=== PATIENT | female | born 1985 | race African-American/Black ===

== ENCOUNTER 2017-11-10 15:04 | Emergency (ER) | payer MEDICAID ==
[~2017-11-10] VITALS: Ht 165.1 cm; Wt 77.1 kg
[2017-11-10 15:12] VITALS: BP 113/77
--- NOTE | 2017-11-10 15:15 | NUR ---
AMBULATES TO BED 6
--- NOTE | 2017-11-10 15:18 | NUR ---
31Y/F BIB SELF REQUESTING MED REFILL OF VALTREX 500MG. PATIENT POSITIONED FOR COMFORT; HOB ELEVATED; BEDRAILS UP X1; BED DOWN. ER MD MADE AWARE OF PT STATUS.
--- NOTE | 2017-11-10 15:20 | NUR ---
Patient being evaluated by physician at bedside.
[2017-11-10 15:41] VITALS: BP 112/75
--- NOTE | 2017-11-10 15:41 | NUR ---
Patient discharged with v/s stable. Written and verbal after care instructions given and explained. Patient alert, oriented and verbalized understanding of instructions. Ambulatory with steady gait. All questions addressed prior to discharge. ID band removed. Patient advised to follow up with PMD. Rx of VALTREX given. Patient educated on indication of medication including possible reaction and side effects. Opportunity to ask questions provided and answered.
== END 2017-11-10 15:41 | disposition home or self-care (01) ==
LOC: MED 15:04
DX: A60.00 Herpesviral infection of urogenital system, unspecified (principal); Z76.0 Encounter for issue of repeat prescription
CPT/HCPCS: 99283